=== PATIENT | male | born 1960 | race Caucasian/White ===

== ENCOUNTER 2017-02-23 18:56 | Inpatient (IN) | payer BC, MEDICAID ==
[~2017-02-23] VITALS: Ht 170.2 cm; Wt 84.0 kg
[2017-02-23] MEDS ORDERED: SODIUM CHLORIDE 0.9% 1,000 ML IV ONE (19:24)
[2017-02-23] MEDS ORDERED: SODIUM CHLORIDE FLUSH 10ML SYR IVF ONE (19:30)
[2017-02-23] MEDS ORDERED: ASPIRIN 81 MG TABLET CHEW PO ONE (19:30)
[2017-02-23] MEDS ORDERED: ASPIRIN 81 MG TABLET CHEW ONE (19:36)
[2017-02-23 19:45] LABS: HEMATOCRIT 46.9 % (39.2-51.8); HEMOGLOBIN 15.8 g/dL (13.7-18.0); WHITE BLOOD COUNT 12.4 x10^3/uL (3.4-10)
[2017-02-23 19:56] LABS: ASPARTATE AMINO TRANSFERASE 19 U/L (15-37); BLOOD UREA NITROGEN 22 mg/dL (7-18)
[2017-02-23 20:04] LABS: IS PT STATUS REG ER OR PRE ER? YES
[2017-02-23] MEDS ORDERED: morphine SULFATE 10 MG/ML, 1ML IV PRN (21:00)
[2017-02-23] MEDS ORDERED: ACETAMINOPHEN 325 MG TABLET PO PRN (21:00)
[2017-02-23] MEDS ORDERED: NITROGLYCERIN 0.4 MG BOTTLE (25 TABS) SL PRN (21:00)
[2017-02-23] MEDS ORDERED: NITROGLYCERIN 0.4 MG/SPRAY SL PRN (21:00)
[2017-02-23 21:22] LABS: IS PT STATUS REG ER OR PRE ER? YES
[2017-02-23 22:05] VITALS: BP 124/80
[2017-02-23] MEDS: SODIUM CHLORIDE FLUSH 10ML SYR IVF SCH (23:19)
[2017-02-23] MEDS: POTASSIUM CHLORIDE 10 MEQ in SODIUM CHLORIDE 0.45% 1,000 ML IV SCH (23:20)
[2017-02-24 00:17] LABS: IS PT STATUS REG ER OR PRE ER? NO
[2017-02-24 01:34] VITALS: BP 114/76
[2017-02-24 03:07] LABS: IS PT STATUS REG ER OR PRE ER? NO
[2017-02-24] MEDS ORDERED: ASPIRIN 325 MG TABLET EC PO SCH (06:00)
[2017-02-24 07:49] VITALS: BP 143/72
[2017-02-24] MEDS ORDERED: REGADENOSON 0.4 MG/5 ML SYRINGE ONE (08:59)
[2017-02-24] MEDS: SODIUM CHLORIDE FLUSH 10ML SYR IVF SCH (09:00)
[2017-02-24 12:47] VITALS: BP 151/81
[2017-02-24] MEDS: POTASSIUM CHLORIDE 10 MEQ in SODIUM CHLORIDE 0.45% 1,000 ML IV SCH (13:51)
[2017-02-24] MEDS ORDERED: ATOR10TA9 PO (14:12)
[2017-02-24] MEDS ORDERED: ASPI-496 PO (14:12)
[2017-02-24] MEDS ORDERED: ATORVASTATIN 10 MG TABLET PO SCH (21:00)
== END 2017-02-24 15:29 | disposition home or self-care (01) | DRG 206 ==
LOC: ED 21:00 → EDIP 21:02 → 5SO 21:46
PROVIDERS: ADMIT Family Medicine; ATTEND Family Medicine
DX: M94.0 Chondrocostal junction syndrome [Tietze] (principal); F12.90 Cannabis use, unspecified, uncomplicated; F17.210 Nicotine dependence, cigarettes, uncomplicated; Z79.82 Long term (current) use of aspirin
CPT/HCPCS: 36415; 71010; 78452; 80053; 80061; 84484; 85025; 93005; 93017; 93306; 99285; J2785; J3480; A9502; C9898; J7030